=== PATIENT | female | born 1960 | race Caucasian/White ===

== ENCOUNTER 2021-06-29 10:48 | Outpatient (CLI) | payer BC | END 2021-06-29 10:49 | disposition home or self-care (01) | LOC: CSHMAMMO 10:48 | PROVIDERS: ATTEND Internal Medicine | DX: Z13.820 Encounter for screening for osteoporosis (principal); Z78.0 Asymptomatic menopausal state; R60.0 Localized edema; M85.89 Other specified disorders of bone density and structure, multiple sites | CPT/HCPCS: 77080; 93306 ==

== ENCOUNTER 2021-06-29 13:34 | Outpatient (CLI) | payer BC | END 2021-06-29 13:35 | disposition home or self-care (01) | LOC: CSHULT 13:34 | PROVIDERS: ATTEND Internal Medicine | DX: R60.0 Localized edema (principal) | CPT/HCPCS: 93970 ==

== ENCOUNTER 2023-07-12 10:13 | Outpatient (CLI) | payer OTHER | END 2023-07-12 10:14 | disposition home or self-care (01) | LOC: CSHRAD 10:13 | PROVIDERS: ATTEND Nurse Practitioner | DX: Z01.818 Encounter for other preprocedural examination (principal) | CPT/HCPCS: 71046 ==

== ENCOUNTER 2024-02-28 10:14 | Outpatient (CLI) | payer OTHER | END 2024-02-28 10:15 | disposition home or self-care (01) | LOC: CSHRAD 10:14 | PROVIDERS: ATTEND Internal Medicine | DX: J40 Bronchitis, not specified as acute or chronic (principal) | CPT/HCPCS: 71046 ==

== ENCOUNTER 2024-03-06 07:46 | Outpatient (CLI) | payer OTHER | END 2024-03-06 07:47 | disposition home or self-care (01) | LOC: CSHMAMMO 07:46 | PROVIDERS: ATTEND Internal Medicine | DX: Z78.0 Asymptomatic menopausal state (principal); M85.851 Other specified disorders of bone density and structure, right thigh; M85.852 Other specified disorders of bone density and structure, left thigh | CPT/HCPCS: 77080 ==